=== PATIENT | male | born 1970 | race American Indian/Alaskan Native ===

== ENCOUNTER 2017-03-20 21:46 | Emergency (ER) | payer OTHER ==
[2017-03-21] MEDS ORDERED: BENADRYL PO ONE (05:38)
--- NOTE | 2017-03-21 05:42 | Emergency Department Report ---
HPI - General Chief Complaint: Skin Rash Time Seen by Provider: 03/21/17 05:38 - HPI HPI: Patient is a 46-year-old male with a history of eczema who presents to ED complaining of eczema flareup for the past 2 days. Patient states past 2 days his exercise got worse. All of her his hands trunk and back started to spread over his thighs.Patient states this rash is starting to itch becoming intolerable He denies fevers/chills/nausea/vomiting/chest pain/shortness of breath or any other problems. ED Past Medical Hx - Past Medical History Previous Medical History?: Yes Hx Hypertension: Yes Additional medical history: eczema - Surgical History Past Surgical History?: Yes Additional Surgical History: shoulder surgery finger - Social History Smoking Status: Current Every Day Smoker Substance Use Type: None - Medications Home Medications: Home Medications Medication Instructions Recorded Confirmed Last Taken Type Lisinopril [Zestril TAB] 10 mg PO QDAY 03/21/17 03/21/17 1 Day Ago History Pramoxine HCl/Calamine [Calamine 177 ml TP DAILY #1 bottle 03/21/17 Unknown Rx Medicated Lotion] diphenhydrAMINE [Benadryl CAP] 25 mg PO DAILY #25 capsule 03/21/17 Unknown Rx predniSONE [Deltasone] 20 mg PO QDAY #10 tab 03/21/17 Unknown Rx ED Review of Systems ROS: Stated complaint: RASH Other details as noted in HPI Constitutional: denies: chills, fever Eyes: denies: eye pain, eye discharge, vision change ENT: denies: ear pain, throat pain Respiratory: denies: cough, shortness of breath, wheezing Cardiovascular: denies: chest pain, palpitations Endocrine: no symptoms reported Gastrointestinal: denies: abdominal pain, nausea, vomiting, diarrhea, constipation Genitourinary: denies: urgency, dysuria Musculoskeletal: denies: back pain, joint swelling, arthralgia Skin: rash, pruritus. denies: lesions Neurological: denies: headache, weakness, numbness, paresthesias Psychiatric: denies: anxiety, depression Hematological/Lymphatic: denies: easy bleeding, easy bruising Physical Exam - Physical Exam Vital Signs: Vital Signs 03/20/17 22:36 Temperature 98.7 F Pulse Rate 72 Respiratory 18 Rate Blood Pressure 112/66 O2 Sat by Pulse 98 Oximetry Physical Exam: GENERAL: Alert and oriented x3, no apparent distress, Normal Gait, atraumatic. MOUTH:Mouth is well hydrated and without lesions. Tonsils nonerythematous or swollen, Uvula midline, Tongue not elevated. Mucous membranes are moist. Posterior pharynx clear, no exudate or lesions. Patent airways. NECK: Supple. Non edematous No lymphadenopathy or thyromegaly. LUNGS: Symetrical with respiration, No wheezing, no rales or crackles, CTAB. HEART: S1, S2 present, regular rate and rhythm without murmur, no rubs, no gallops. Non tender to palpation EXTREMITIES/MUSCULOSKELETAL: No cyanosis, clubbing, rash, lesions or edema. Full ROM bilaterally. UE/LE Pulses 2+ bilaterally. SKIN: Warm and dry, dry, scaly, maculopapular generalized lesions spread all across her arms bilaterally, chest, back, neck. No ulceration or induration present. ED Course Vital Signs 03/20/17 22:36 Temperature 98.7 F Pulse Rate 72 Respiratory 18 Rate Blood Pressure 112/66 O2 Sat by Pulse 98 Oximetry ED Medical Decision Making - Medical Decision Making 46-year-old male presents with a eczema exacerbation ED course: Patient received 125 mg of prednisone and Benadryl in ED. Discussed home medication as well as discussed with patient to take medication as prescribed. Vital signs are a normal patient is in no acute distress This patient to follow up with dermatology as referred Discussed with patient has a follow-up with primary care physician. Patient is alert and oriented 3 he understands instructions as given Critical care attestation.: If time is entered above; I have spent that time in minutes in the direct care of this critically ill patient, excluding procedure time. ED Disposition Clinical Impression: Acute eczema Atopic dermatitis Qualifiers: Atopic dermatitis type: other Qualified Code(s): L20.89 - Other atopic dermatitis; L20.8 - Other atopic dermatitis Disposition: DC-01 TO HOME OR SELFCARE Is pt being admited?: No Does the pt Need Aspirin: No Condition: Stable Instructions: Eczema (ED), Acute Rash (ED) Prescriptions: diphenhydrAMINE [Benadryl CAP] 25 mg PO DAILY #25 capsule Pramoxine HCl/Calamine [Calamine Medicated Lotion] 177 ml TP DAILY #1 bottle predniSONE [Deltasone] 20 mg PO QDAY #10 tab Referrals: PRIMARY CARE, [Primary Care Provider] - 3-5 Days JOSH KIM MD [Staff Physician] - 3-5 Days INA CAMPBELL MD [Staff Physician] - 3-5 Days [facility] [Outside] - 3-5 Days [facility] [Outside] - 3-5 Days Forms: Work/School Release Form(ED), Accompanied Note Time of Disposition: 05:44
[2017-03-21 06:40] VITALS: BP 132/87
== END 2017-03-21 06:40 | disposition home or self-care (01) ==
LOC: ED 21:46
DX: L20.89 Other atopic dermatitis (principal); I10 Essential (primary) hypertension; F17.200 Nicotine dependence, unspecified, uncomplicated
CPT/HCPCS: 96372; 99282; J2930

== ENCOUNTER 2017-04-22 01:20 | Emergency (ER) | payer OTHER ==
[2017-04-22 01:31] VITALS: BP 151/90
--- NOTE | 2017-04-22 02:07 | Emergency Department Report ---
ED Rash HPI - HPI Chief Complaint: Skin Rash Stated Complaint: RASH ARMS/CHEST AND KNEE Duration: 3 Days Location: Chest, Abdomen, Upper Extremities Rash Symptoms: Yes Itching, No Facial Swelling, No Tongue/Oral Swelling, No Breathing Difficulties, No Choking Sensation, No Wheezing/Dyspnea, No Peeling, No Blistering, No Fever, No Lightheaded, No Malaise, No Myalgias Severity: mild ED Review of Systems ROS: Stated complaint: RASH ARMS/CHEST AND KNEE Other details as noted in HPI Constitutional: denies: chills, fever Eyes: denies: eye pain, eye discharge, vision change ENT: denies: ear pain, throat pain Respiratory: denies: cough, shortness of breath, wheezing Cardiovascular: denies: chest pain, palpitations Endocrine: no symptoms reported Gastrointestinal: denies: abdominal pain, nausea, vomiting, diarrhea Genitourinary: denies: urgency, dysuria Musculoskeletal: denies: back pain, joint swelling, arthralgia Skin: rash, pruritus. denies: lesions Neurological: denies: headache, weakness, paresthesias Psychiatric: denies: anxiety, depression Hematological/Lymphatic: denies: easy bleeding, easy bruising ED Past Medical Hx - Past Medical History Previous Medical History?: Yes Hx Hypertension: Yes Additional medical history: eczema - Surgical History Past Surgical History?: Yes Additional Surgical History: shoulder surgery finger - Social History Smoking Status: Current Some Day Smoker Substance Use Type: Alcohol - Medications Home Medications: Home Medications Medication Instructions Recorded Confirmed Last Taken Type Lisinopril [Zestril TAB] 10 mg PO QDAY 03/21/17 03/21/17 1 Day Ago History Pramoxine HCl/Calamine [Calamine 177 ml TP DAILY #1 bottle 03/21/17 Unknown Rx Medicated Lotion] diphenhydrAMINE [Benadryl CAP] 25 mg PO DAILY #25 capsule 03/21/17 Unknown Rx hydrOXYzine HCL [Atarax] 25 mg PO Q6HR PRN #25 tablet 04/22/17 Unknown Rx predniSONE [Deltasone] 20 mg PO QDAY #10 tab 04/22/17 Unknown Rx Rash Exam - Exam General: Vital signs noted. No distress. Alert and acting appropriately. HEENT: No Periorbital Edema, No Conjuctival Injection, No Chemosis, No Perioral Edema, No Tongue Edema, No Uvular Edema, No Compromised Airway, No Drooling Lungs: Yes Good Air Exchange (Normal Breath Sounds), No Wheezes, No Ronchi, No Stridor, No Cough, No Labored Respirations, No Retractions, No Use of Accessory Muscles, No Other Abnormal Lung Sounds Heart: Yes Regular, No Murmur Skin: Yes Excoriations, Yes Encrustations, Yes Other (consistent with eczema) Other: Positive: Abdomen Normal, Neurologic Normal, Musculoskeletal Normal ED Course Vital Signs 04/22/17 01:27 Temperature 98.2 F Pulse Rate 83 Respiratory 18 Rate Blood Pressure 151/90 O2 Sat by Pulse 99 Oximetry Critical care attestation.: If time is entered above; I have spent that time in minutes in the direct care of this critically ill patient, excluding procedure time. ED Disposition Clinical Impression: Eczema Disposition: DC-01 TO HOME OR SELFCARE Is pt being admited?: No Condition: Stable Instructions: Eczema (ED) Prescriptions: hydrOXYzine HCL [Atarax] 25 mg PO Q6HR PRN #25 tablet PRN Reason: Itching predniSONE [Deltasone] 20 mg PO QDAY #10 tab Referrals: PRIMARY CARE, [Primary Care Provider] - 3-5 Days
[2017-04-22] MEDS ORDERED: DECADRON IM ONE (02:12)
== END 2017-04-22 02:21 | disposition home or self-care (01) ==
LOC: ED 01:20
DX: L30.9 Dermatitis, unspecified (principal); I10 Essential (primary) hypertension; Z72.0 Tobacco use
CPT/HCPCS: 96372; 99282; J1100

== ENCOUNTER 2021-03-18 05:32 | Emergency (ER) | payer OTHER ==
--- NOTE | 2021-03-18 09:00 | Emergency Department Report ---
ED Extremity Problem HPI - General Chief complaint: Shoulder Injury Stated complaint: RT SHOULDER PAIN Time Seen by Provider: 03/18/21 08:38 Source: patient Mode of arrival: Ambulatory Limitations: No Limitations - History of Present Illness Initial comments: 50 year old male presents to ED with complaints of bilateral shoulder pain but more so the right shoulder. He states he started with right shoulder pain a couple days ago. He points mainly to proximal humerus area over the deltoid muscle. He states pain has been constant and worse with palpation and movement. He denies any injury but states he does do repetitive movements of his arms at work. He states he had torn some of his tendons in his right shoulder several years ago due to his work in the and he had repair of that shoulder. He states that the left shoulder pain is chronic. He reports rotator cuff repair to that shoulder several years ago. He reports no other symptoms at this time. MD Complaint: joint paint, other (Bilateral shoulder pain ) - Related Data Home Medications Medication Instructions Recorded Confirmed Last Taken lisinopriL [Zestril TAB] 10 mg PO QDAY 03/21/17 03/21/17 1 Day Ago ~03/20/17 Previous Rx's Medication Instructions Recorded Last Taken Type Pramoxine HCl/Calamine [Calamine 177 ml TP DAILY #1 bottle 03/21/17 Unknown Rx Medicated Lotion] diphenhydrAMINE [Benadryl CAP] 25 mg PO DAILY #25 capsule 03/21/17 Unknown Rx hydrOXYzine HCL [Atarax] 25 mg PO Q6HR PRN #25 tablet 04/22/17 Unknown Rx predniSONE [Deltasone] 20 mg PO QDAY #10 tab 04/22/17 Unknown Rx Ketorolac [Toradol] 10 mg PO Q6H PRN #20 tablet 03/18/21 Unknown Rx Allergies Allergy/AdvReac Type Severity Reaction Status Date / Time No Known Allergies Allergy Unverified 11/21/13 00:52 ED Review of Systems ROS: Stated complaint: RT SHOULDER PAIN Other details as noted in HPI Comment: All other systems reviewed and negative Respiratory: denies: cough, shortness of breath, SOB with exertion, SOB at rest, wheezing Cardiovascular: denies: chest pain, palpitations Musculoskeletal: arthralgia, myalgia ED Past Medical Hx - Past Medical History Previous Medical History?: Yes Hx Hypertension: Yes Additional medical history: eczema - Surgical History Past Surgical History?: Yes Additional Surgical History: shoulder surgery finger - Social History Smoking Status: Current Some Day Smoker Substance Use Type: Alcohol - Medications Home Medications: Home Medications Medication Instructions Recorded Confirmed Last Taken Type Pramoxine HCl/Calamine [Calamine 177 ml TP DAILY #1 bottle 03/21/17 Unknown Rx Medicated Lotion] diphenhydrAMINE [Benadryl CAP] 25 mg PO DAILY #25 capsule 03/21/17 Unknown Rx lisinopriL [Zestril TAB] 10 mg PO QDAY 03/21/17 03/21/17 1 Day Ago History ~03/20/17 hydrOXYzine HCL [Atarax] 25 mg PO Q6HR PRN #25 tablet 04/22/17 Unknown Rx predniSONE [Deltasone] 20 mg PO QDAY #10 tab 04/22/17 Unknown Rx Ketorolac [Toradol] 10 mg PO Q6H PRN #20 tablet 03/18/21 Unknown Rx ED Physical Exam - General Limitations: No Limitations General appearance: alert, in no apparent distress - Head Head exam: Present: atraumatic, normocephalic - Eye Eye exam: Present: normal appearance, PERRL, EOMI Pupils: Present: normal accommodation - Neck Neck exam: Present: normal inspection, full ROM - Respiratory Respiratory exam: Present: normal lung sounds bilaterally. Absent: respiratory distress - Cardiovascular Cardiovascular Exam: Present: regular rate, normal rhythm, normal heart sounds - GI/Abdominal GI/Abdominal exam: Present: soft. Absent: distended, tenderness, guarding, rebound - Expanded Upper Extremity Exam Right Shoulder Exam: Present: normal inspection, full ROM, tenderness (mild point ttp over deltoid muscle. ). Absent: swelling, abrasion, laceration, ecchymosis, deformity, crepidus, erythema, tenderness over AC joint Neurosensory exam: Present: radial nerve intact, ulnar nerve intact, median nerve intact Vascular: Absent: vascular compromise Left Shoulder Exam: Present: normal inspection, full ROM, tenderness (Mild point ttp over deltoid muscle. ). Absent: swelling, abrasion, laceration, ecchymosis, deformity, crepidus, dislocation, erythema, tenderness over AC joint Neurosensory exam: Present: radial nerve intact, ulnar nerve intact, median nerve intact Vascular: Absent: vascular compromise - Neurological Exam Neurological exam: Present: alert, oriented X3, CN II-XII intact, normal gait - Psychiatric Psychiatric exam: Present: normal affect, normal mood - Skin Skin exam: Present: intact ED Course Vital Signs 03/18/21 07:35 Temperature 98.2 F Pulse Rate 60 Respiratory 18 Rate Blood Pressure 129/83 O2 Sat by Pulse 100 Oximetry Critical care attestation.: If time is entered above; I have spent that time in minutes in the direct care of this critically ill patient, excluding procedure time. ED Disposition Clinical Impression: Shoulder pain, bilateral Disposition: DC-01 TO HOME OR SELFCARE Is pt being admited?: No Does the pt Need Aspirin: No Condition: Stable Instructions: Bursitis, [id number], Tendinitis, Shoulder Pain, [id number] Additional Instructions: Take the toradol as prescribed. Follow up with the medical program specialist listed on your discharge instructions. Return to ED if worse. 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
[2021-03-18] MEDS ORDERED: KETOROLAC 10 MG TAB PO ONE (09:03)
[2021-03-18 09:22] VITALS: BP 138/82
== END 2021-03-18 09:20 | disposition home or self-care (01) ==
LOC: ED 05:32
DX: M25.511 Pain in right shoulder (principal); M25.512 Pain in left shoulder; I10 Essential (primary) hypertension; F17.200 Nicotine dependence, unspecified, uncomplicated; Z98.890 Other specified postprocedural states; Z79.899 Other long term (current) drug therapy
CPT/HCPCS: 99282